=== PATIENT | female | born 1960 | race Two or more races ===

== ENCOUNTER 2022-06-07 15:53 | Emergency (ER) | payer OTHER ==
[~2022-06-07] VITALS: Ht 162.6 cm; Wt 54.0 kg
== END 2022-06-07 21:03 | disposition home or self-care (01) ==
LOC: ER 15:53
DX: S09.90XA Unspecified injury of head, initial encounter (principal); S14.109S Unspecified injury at unspecified level of cervical spinal cord, sequela; W18.30XA Fall on same level, unspecified, initial encounter; Y93.89 Activity, other specified; Y92.89 Other specified places as the place of occurrence of the external cause; Y99.9 Unspecified external cause status